=== PATIENT | female | born 1930 | race African-American/Black ===

== ENCOUNTER 2016-06-29 00:10 | Emergency (ER) | payer MEDICARE, OTHER ==
[2016-06-29] MEDS ORDERED: METOCLOPRAMIDE 10 MG/2 ML VIAL ONE (02:25)
[2016-06-29] MEDS ORDERED: SODIUM CHLORIDE 0.9% 1,000 ML ONE (02:25)
== END 2016-06-29 04:54 | disposition home or self-care (01) ==
LOC: ER 00:10
CPT/HCPCS: 36415; 80053; 81001; 82947; 83690; 85025; 87088; 96361; 96374

== ENCOUNTER 2016-07-05 11:51 | Emergency (ER) | payer MEDICARE, OTHER ==
[2016-07-05] MEDS ORDERED: OPTIRAY 350 100 ML VIAL HMH IV ONE (11:52)
[2016-07-05] MEDS ORDERED: ONDANSETRON 4 MG VIAL ONE ×2 (12:28→16:08)
[2016-07-05] MEDS ORDERED: CEFTRIAXONE 1 GM VIAL ONE (14:05)
[2016-07-05] MEDS ORDERED: SODIUM CHLORIDE 0.9% 100 ML IV ONE (14:05)
[2016-07-05] MEDS ORDERED: SODIUM CHLORIDE 0.9% 500 ML IV ONE (15:19)
== END 2016-07-05 16:39 | disposition home or self-care (01) ==
LOC: ER 11:51
DX: K92.1 Melena (principal); N30.00 Acute cystitis without hematuria
CPT/HCPCS: 36415; 74177; 80053; 81001; 83690; 85025; 87077; 87088; 87186; 96361; 96365; 96375; 99284; J0696; J2405; J7040; Q9967

== ENCOUNTER 2016-07-10 10:48 | Inpatient (IN) | payer MEDICARE, OTHER ==
[~2016-07-10] VITALS: Ht 162.6 cm; Wt 54.8 kg
[~2016-07-10 10:48] MED LIST: LIDOCAINE 2% SYR 5 ML IV ONE; ONDANSETRON 4 MG VIAL IV PUSH ONE; PROPOFOL 50ML PER ML IV ONE
[2016-07-10] MEDS ORDERED: DEXTROSE 50% 50 ML ONE (11:13)
[2016-07-10] MEDS ORDERED: DEXTROSE 50% SYRINGE 50 ML IV PRN (16:20)
[2016-07-10] MEDS ORDERED: BISACODYL EC 5 MG TAB PO PRN (16:20)
[2016-07-10] MEDS ORDERED: ACETAMINOPHEN 325 MG TAB PO PRN (16:20)
[2016-07-10] MEDS ORDERED: MAG HYDROX 30 ML UDC PO PRN (16:20)
[2016-07-10] MEDS ORDERED: SALINE FLUSH 10 ML FLUSH PRN (16:20)
[2016-07-10] MEDS ORDERED: ALU/MAG/SIM 30 ML UDC PO PRN (16:20)
[2016-07-10] MEDS ORDERED: GLUCAGON 1 MG VIAL IM PRN (16:20)
[2016-07-10] MEDS ORDERED: BISACODYL 10 MG SUPP RECTAL PRN (16:20)
[2016-07-10 19:35] VITALS: Ht 162.6 cm; Wt 54.8 kg
[2016-07-10] MEDS: SODIUM CHLORIDE 0.9% 1,000 ML IV SCH (19:45)
[2016-07-10] MEDS: SALINE FLUSH 10 ML FLUSH SCH (20:00)
[2016-07-10] MEDS ORDERED: *PINK BRACELET XX ONE (20:10)
[2016-07-10 20:13] VITALS: BP_SYST 128
[2016-07-10 20:16] VITALS: RESP 18; TEMP 97.8
[2016-07-10 22:14] VITALS: RESP 18
[2016-07-10 23:00] VITALS: BP_SYST 132; RESP 18; TEMP 97.8
[2016-07-11 03:00] VITALS: BP_SYST 128; RESP 18; TEMP 97.9
[2016-07-11] MEDS: SODIUM CHLORIDE 0.9% FLUSH BAG 500 ML IV SCH (04:42)
[2016-07-11] MEDS: SODIUM CHLORIDE 0.9% 1,000 ML IV SCH (07:10)
[2016-07-11] MEDS: SALINE FLUSH 10 ML FLUSH SCH ×2 (08:00→19:51)
[2016-07-11] MEDS: *HOME MEDS KEPT IN PHARMACY XX SCH ×2 (08:00→19:16)
[2016-07-11 08:27] VITALS: BP_SYST 130; RESP 18; TEMP 98
[2016-07-11] MEDS: ENOXAPARIN 40 MG/0.4 ML SYR SUBQ SCH (09:46)
[2016-07-11] MEDS ORDERED: ONDANSETRON 4 MG TAB PO PRN (10:20)
[2016-07-11] MEDS ORDERED: PROMETHAZINE 25 MG/ML VIAL IV PRN (10:20)
[2016-07-11] MEDS: PANTOPRAZOLE 40 MG VIAL IV SCH ×2 (15:08→19:51)
[2016-07-11 16:23] VITALS: BP_SYST 150; RESP 18; TEMP 98.2
[2016-07-11] MEDS: ASPIRIN 81 MG CHEW TAB PO SCH ×2 (16:24→16:28)
[2016-07-11] MEDS: ONDANSETRON 4 MG VIAL IV PUSH PRN ×2 (16:24→23:30)
[2016-07-11 20:47] VITALS: BP_SYST 126; RESP 18; TEMP 98.6
[2016-07-11 23:35] VITALS: BP_SYST 132; RESP 18; TEMP 98.3
[2016-07-12] VITALS (13 sets, daily range): BP systolic 92–190; RESP 14–24; TEMP 96.3–98.5
[2016-07-12] MEDS: SODIUM CHLORIDE 0.9% FLUSH BAG 500 ML IV SCH (04:09)
[2016-07-12] MEDS: *HOME MEDS KEPT IN PHARMACY XX SCH ×2 (08:00→19:15)
[2016-07-12] MEDS: SALINE FLUSH 10 ML FLUSH SCH ×2 (08:01→19:50)
[2016-07-12] MEDS: PANTOPRAZOLE 40 MG VIAL IV SCH ×2 (08:05→19:50)
[2016-07-12] MEDS: ENOXAPARIN 40 MG/0.4 ML SYR SUBQ SCH (08:06)
[2016-07-12] MEDS: ASPIRIN 81 MG CHEW TAB PO SCH (08:06)
[2016-07-12] MEDS ORDERED: TEMAZEPAM 7.5 MG CAP PO PRN (12:05)
[2016-07-12] MEDS: SUCRALFATE 1GM/10ML SUSP PO SCH ×2 (16:25→19:50)
[2016-07-12] MEDS: humaLOG MIX 75/25 INSULIN SUBQ SCH ×2 (22:00→22:10)
[2016-07-13] VITALS (8 sets, daily range): BP systolic 150–172; RESP 16–18; TEMP 97.7–98.7
[2016-07-13] MEDS: ONDANSETRON 4 MG VIAL IV PUSH PRN (03:32)
[2016-07-13] MEDS: SODIUM CHLORIDE 0.9% FLUSH BAG 500 ML IV SCH (04:57)
[2016-07-13] MEDS: SUCRALFATE 1GM/10ML SUSP PO SCH ×3 (06:07→16:24)
[2016-07-13] MEDS ORDERED: MISSING DOSE XX ONE (07:50)
[2016-07-13] MEDS: *HOME MEDS KEPT IN PHARMACY XX SCH (08:00)
[2016-07-13] MEDS: SALINE FLUSH 10 ML FLUSH SCH (08:17)
[2016-07-13] MEDS: PANTOPRAZOLE 40 MG VIAL IV SCH (08:17)
[2016-07-13] MEDS: ENOXAPARIN 40 MG/0.4 ML SYR SUBQ SCH (08:18)
[2016-07-13] MEDS: ASPIRIN 81 MG CHEW TAB PO SCH (08:18)
[2016-07-13] MEDS ORDERED: humaLOG MIX 75/25 INSULIN SUBQ SCH (09:00)
[2016-07-13] MEDS: humaLOG MIX 75/25 INSULIN SUBQ SCH (17:33)
[2016-07-14] MEDS ORDERED: PANTOPRAZOLE 40 MG TAB PO SCH (16:00)
== END 2016-07-13 19:17 | disposition home or self-care (01) | DRG 381 ==
LOC: ENRESERVDT → ENRESERVTM → ER 10:48 → EMR 16:46 → ENPENDDIS 16:46 → 4THE 19:23
PROVIDERS: ADMIT Internal Medicine; ATTEND Internal Medicine
DX: K22.10 Ulcer of esophagus without bleeding (principal); N17.9 Acute kidney failure, unspecified; E11.22 Type 2 diabetes mellitus with diabetic chronic kidney disease; E11.649 Type 2 diabetes mellitus with hypoglycemia without coma; R13.10 Dysphagia, unspecified; E87.1 Hypo-osmolality and hyponatremia; Z68.1 Body mass index [BMI] 19.9 or less, adult; K22.8 Other specified diseases of esophagus; E86.0 Dehydration; K44.9 Diaphragmatic hernia without obstruction or gangrene; K29.80 Duodenitis without bleeding; E11.65 Type 2 diabetes mellitus with hyperglycemia; I12.9 Hypertensive chronic kidney disease with stage 1 through stage 4 chronic kidney disease, or unspecified chronic kidney disease; N18.3 Chronic kidney disease, stage 3 (moderate); Z79.4 Long term (current) use of insulin; Z91.81 History of falling; R63.4 Abnormal weight loss; Z86.73 Personal history of transient ischemic attack (TIA), and cerebral infarction without residual deficits; Z79.82 Long term (current) use of aspirin
CPT/HCPCS: 36415; 71010; 78264; 80048; 80053; 81003; 82553; 82947; 83036; 83690; 84484; 85025; 85610; 88305; 93005; 94799; 96374; 99233

== ENCOUNTER 2016-07-17 20:46 | Inpatient (IN) | payer MEDICARE, OTHER ==
[~2016-07-17] VITALS: Ht 162.6 cm; Wt 50.2 kg
[2016-07-17] MEDS ORDERED: SODIUM CHLORIDE 0.9% 1,000 ML ONE (21:37)
[2016-07-17] MEDS ORDERED: DEXTROSE 50% 50 ML ONE (23:17)
[2016-07-18] VITALS (7 sets, daily range): BP systolic 110–140; RESP 16–22; TEMP 95.2–97.9; Ht 162.6 cm; Wt 50.2 kg
[2016-07-18] MEDS ORDERED: DEXTROSE 50% SYRINGE 50 ML IV PRN (00:20)
[2016-07-18] MEDS ORDERED: SALINE FLUSH 10 ML FLUSH PRN (00:20)
[2016-07-18] MEDS ORDERED: GLUCAGON 1 MG VIAL IM PRN (00:20)
[2016-07-18] MEDS ORDERED: *PINK BRACELET XX ONE (02:00)
[2016-07-18] MEDS: CEFTRIAXONE 1 GM in SODIUM CHLORIDE 0.9% 50 ML IV SCH ×2 (02:17→10:56)
[2016-07-18] MEDS: SALINE FLUSH 10 ML FLUSH SCH ×3 (02:17→20:46)
[2016-07-18] MEDS: DEXTROSE 5% SALINE 0.9% 1,000 ML IV SCH ×3 (04:13→23:28)
[2016-07-18] MEDS ORDERED: SODIUM CHLORIDE 0.9% FLUSH BAG 500 ML IV SCH (06:00)
[2016-07-18] MEDS: PANTOPRAZOLE 40 MG TAB PO SCH ×2 (06:04→16:22)
[2016-07-18] MEDS: SUCRALFATE 1GM/10ML SUSP PO SCH ×3 (06:04→16:22)
[2016-07-18] MEDS: ACETAMINOPHEN 325 MG TAB PO PRN ×3 (06:05→20:45)
[2016-07-18] MEDS: *HOME MEDS KEPT IN PHARMACY XX SCH ×2 (08:00→20:00)
[2016-07-18] MEDS: CARVEDILOL 25 MG TAB PO SCH ×2 (10:03→20:44)
[2016-07-18] MEDS: ASPIRIN 81 MG CHEW TAB PO SCH (10:03)
[2016-07-18] MEDS ORDERED: MISSING DOSE XX ONE (10:05)
[2016-07-19] VITALS (7 sets, daily range): BP systolic 148–178; RESP 16–20; TEMP 97–98
[2016-07-19] MEDS: SUCRALFATE 1GM/10ML SUSP PO SCH ×3 (06:13→17:27)
[2016-07-19] MEDS: PANTOPRAZOLE 40 MG TAB PO SCH ×2 (06:13→17:27)
[2016-07-19] MEDS: SALINE FLUSH 10 ML FLUSH SCH (08:00)
[2016-07-19] MEDS: CARVEDILOL 25 MG TAB PO SCH (08:12)
[2016-07-19] MEDS: CEFTRIAXONE 1 GM in SODIUM CHLORIDE 0.9% 50 ML IV SCH (08:12)
[2016-07-19] MEDS: ASPIRIN 81 MG CHEW TAB PO SCH (08:12)
[2016-07-19] MEDS: *HOME MEDS KEPT IN PHARMACY XX SCH (08:41)
[2016-07-19] MEDS: DEXTROSE 5% SALINE 0.9% 1,000 ML IV SCH (10:08)
[2016-07-19] MEDS: ACETAMINOPHEN 325 MG TAB PO PRN (11:44)
[2016-07-19] MEDS ORDERED: BISACODYL 10 MG SUPP RECTAL ONE (13:55)
== END 2016-07-19 19:42 | disposition home or self-care (01) | DRG 638 ==
LOC: ENRESERVDT → ENRESERVTM → ER 20:46 → EMR 20:47 → 4NT 07-18 01:09 → OBSVTOIN 07-19 13:27 → ENPENDDIS 07-19 13:27
PROVIDERS: ADMIT Family Medicine; ATTEND Family Medicine
DX: E11.649 Type 2 diabetes mellitus with hypoglycemia without coma (principal); N39.0 Urinary tract infection, site not specified; E11.65 Type 2 diabetes mellitus with hyperglycemia; E86.1 Hypovolemia; Z79.4 Long term (current) use of insulin; I10 Essential (primary) hypertension; Z91.19 Patient's noncompliance with other medical treatment and regimen; R53.1 Weakness; Z86.73 Personal history of transient ischemic attack (TIA), and cerebral infarction without residual deficits; Z79.82 Long term (current) use of aspirin
CPT/HCPCS: 36415; 70450; 71010; 72125; 72170; 80053; 81001; 82550; 82553; 82947; 83735; 84439; 84443; 84484; 85025; 85379; 85610; 85730; 87040; 87088; 93005; 94799; 96374; 99219; 99239